=== PATIENT | male | born 1960 | race African-American/Black ===

== ENCOUNTER 2022-09-25 08:53 | Emergency (ER) | payer OTHER ==
[~2022-09-25] VITALS: Ht 180.3 cm; Wt 93.2 kg
[2022-09-25] MEDS ORDERED: DOXA8 PO (09:07)
[2022-09-25 10:35] VITALS: BP 138/82
== END 2022-09-25 11:51 | disposition home or self-care (01) ==
LOC: EMS 08:57
DX: M25.512 Pain in left shoulder (principal); F10.20 Alcohol dependence, uncomplicated; S49.92XA Unspecified injury of left shoulder and upper arm, initial encounter; V89.2XXA Person injured in unspecified motor-vehicle accident, traffic, initial encounter; Y93.89 Activity, other specified; Y92.89 Other specified places as the place of occurrence of the external cause; Y99.8 Other external cause status
CPT/HCPCS: 99281; Z7502